=== PATIENT | male | born 1975 | race Two or more races ===

== ENCOUNTER 2018-11-21 14:58 | Emergency (ER) | payer MEDICAID, OTHER ==
[2018-11-21] MEDS ORDERED: SODIUM CHLORIDE 0.9% 1,000 ML IV ONE (15:26)
[2018-11-21] MEDS ORDERED: LORazepam 2MG/ML-1ML VIAL IV ONE (15:30)
[2018-11-21] MEDS ORDERED: ONDANSETRON HCL 4 MG/2 ML VIAL IV ONE (15:30)
[2018-11-21 15:55] LABS: Basophils # (auto) 0.1 uL; Basophils % (auto) 2.1 % (0.0-2.0); Eosinophils # (auto) 0.1 uL; Eosinophils % (auto) 1.6 % (0.0-7.0); Hematocrit 44.9 % (41.0-53.0); Hemoglobin 15.4 g/dL (13.5-17.5); Lymphocytes # (auto) 1.2 uL; Lymphocytes % (auto) 23.5 % (10.0-50.0); Mean Corpuscular Hemoglobin 32.6 pg (28.0-32.0); Mean Corpuscular Hgb Conc. 34.3 g/dL (32.0-36.0); Monocytes # (auto) 0.6 uL; Monocytes % (auto) 11.3 % (0.0-12.0); Neutrophils % (auto) 61.5 % (37.0-80.0); Nucleated Red Blood Cells % 0.1 %; Platelet Count (auto) 207 10^3/uL (140-450); Red Blood Cells 4.73 10^6/uL (4.5-5.90); Red Cell Distribution Width 14.6 % (11.8-14.3); White Blood Cell 4.9 10^3/uL (4.4-10.8)
[2018-11-21 16:11] LABS: Albumin 3.4 g/dL (3.4-5.0); Calcium 8.3 mg/dL (8.5-10.1); Potassium 3.8 mmol/L (3.5-5.1)
[2018-11-21 16:19] LABS: BUN/Creatinine Ratio 3.2
[2018-11-21 16:20] LABS: Bilirubin, Total 0.7 mg/dL (0.2-1.0); Total Protein 8.4 g/dL (6.4-8.2)
[2018-11-21 18:52] VITALS: BP 112/79
== END 2018-11-21 19:30 | disposition left against medical advice (07) ==
LOC: ER 14:58
DX: F10.129 Alcohol abuse with intoxication, unspecified (principal); Z53.29 Procedure and treatment not carried out because of patient's decision for other reasons
CPT/HCPCS: 36415; 80053; 80320; 85025; 93005; 94761; 96361; 96374; 96375; 99284; J2060; J2405; J7030

== ENCOUNTER 2018-11-25 12:03 | Inpatient (IN) | payer MEDICAID ==
[~2018-11-25] VITALS: Ht 167.6 cm; Wt 61.0 kg
--- NOTE | 2018-11-25 00:39 | NUR ---
Urine sample collected and sent to lab. Addendum: 11/26/18 at 0205 by NISHA FIELDS RN RN incorrect date. Sample sent to lab on 11/26/18 at 0039
[2018-11-25] MEDS ORDERED: SODIUM CHLORIDE 0.9% 1,000 ML IVB ONE (12:37)
[2018-11-25] MEDS ORDERED: ONDANSETRON HCL 4 MG/2 ML VIAL IV ONE (12:45)
[2018-11-25] MEDS ORDERED: SODIUM CHLORIDE 0.9% 1,000 ML IV ONE (12:45)
[2018-11-25 13:07] LABS: Basophils # (auto) 0.1 uL; Basophils % (auto) 1.1 % (0.0-2.0); Eosinophils # (auto) 0 uL; Eosinophils % (auto) 0.3 % (0.0-7.0); Hematocrit 41.2 % (41.0-53.0); Hemoglobin 14.3 g/dL (13.5-17.5); Lymphocytes # (auto) 1.1 uL; Lymphocytes % (auto) 16.6 % (10.0-50.0); Mean Corpuscular Hemoglobin 32.7 pg (28.0-32.0); Mean Corpuscular Hgb Conc. 34.6 g/dL (32.0-36.0); Mean Corpuscular Volume 94.4 fL (80.0-100.0); Monocytes # (auto) 0.8 uL; Monocytes % (auto) 12.1 % (0.0-12.0); Neutrophils # (auto) 4.7 uL; Neutrophils % (auto) 69.9 % (37.0-80.0); Platelet Count (auto) 159 10^3/uL (140-450); Red Blood Cells 4.37 10^6/uL (4.5-5.90); Red Cell Distribution Width 14.6 % (11.8-14.3); White Blood Cell 6.7 10^3/uL (4.4-10.8)
[2018-11-25 13:25] LABS: Albumin 3.2 g/dL (3.4-5.0); Calcium 7.7 mg/dL (8.5-10.1); Magnesium 2.7 mg/dL (1.6-2.6); Potassium 3.3 mmol/L (3.5-5.1)
[2018-11-25 13:28] LABS: INR 0.98 (0.9-1.15); Partial Thromboplastin Time 29.8 sec (23.64-32.05)
[2018-11-25 13:29] LABS: BUN/Creatinine Ratio 3.4; Bilirubin, Total 0.9 mg/dL (0.2-1.0); Total Protein 7.9 g/dL (6.4-8.2)
[2018-11-25] MEDS ORDERED: FOLIC ACID 1 MG, MULTIPLE VITAMIN 10 ML, MAGNESIUM SULF SDV 50% 8 MEQ, THIAMINE INJ 100... INJ SCH ×5 (14:00)
[2018-11-25 14:48] LABS: Amphetamine Screen, Urine NEGATIVE (NEGATIVE); Barbiturate Scree,Urine NEGATIVE (NEGATIVE); Benzodiazephine Screen, Urine NEGATIVE (NEGATIVE); Cannabinoid Screen, Urine NEGATIVE (NEGATIVE); Cocaine Screen, Urine NEGATIVE (NEGATIVE); Opiate Scree,Urine NEGATIVE (NEGATIVE); Phencyclidine Screen, Urine NEGATIVE (NEGATIVE)
[2018-11-25] MEDS ORDERED: cefTRIAXone 1GM/50ML D5W 50 ML IV ONE (16:15)
[2018-11-25] MEDS ORDERED: HYDROcodone-ACET 5/325MG TAB PO PRN (17:45)
[2018-11-25] MEDS ORDERED: NITROGLYCERIN 0.4 MG SL TAB SL PRN (17:45)
[2018-11-25] MEDS ORDERED: MORPHINE SULF INJ 2 MG/ML SYRINGE 1ML IV PRN ×2 (17:45)
[2018-11-25] MEDS ORDERED: ACETAMINOPHEN 500 MG TAB PO PRN (17:45)
[2018-11-25] MEDS ORDERED: POTASSIUM CHLORIDE 40 MEQ, LIDOCAINE 1% (LOCAL ANESTH.) 4 ML in SODIUM CHL 0.9% 100 ML IV ONE (18:00)
[2018-11-25] MEDS: chlordiazePOXIDE HCL 5 MG CAP PO SCH ×2 (18:08→21:57)
[2018-11-25] MEDS: LORazepam 2MG/ML-1ML VIAL IV PRN (18:16)
[2018-11-25 19:31] VITALS: BP 116/69
--- NOTE | 2018-11-25 19:31 | NUR ---
MS admit from ER VENKATESH OBRIEN admitted to tele/MS. Family is at bedside. Patient oriented to NISHA FIELDS, RN primary RN, unit, room, bed, and unit policies regarding patient care and visiting hours. Patient weighed by bedscale and encouraged to call if they need something. All questions and concerns addressed, patient verbalized understanding.
[2018-11-25 22:00] VITALS: BP 116/69
[2018-11-25] MEDS: ONDANSETRON HCL 4 MG/2 ML VIAL IV PRN (22:00)
--- NOTE | 2018-11-25 22:00 | NUR ---
NAUSEA Observed patient vomit. Reports nausea. Medicated for nausea as ordered.
--- NOTE | 2018-11-26 | NUR ---
ROUNDS Patient resting in bed with eyes closed. No s/s of distress noted. Will continue to monitor for changes PRN.
[2018-11-26 01:07] LABS: Urine WBC None Seen /hpf (0 - 3)
[2018-11-26 01:18] LABS: Urine Bacteria FEW /hpf (None Seen); Urine Blood Negative /uL (Negative)
--- NOTE | 2018-11-26 03:30 | NUR ---
ROUNDS Observed patient vomiting. Medicated for nausea per orders.
[2018-11-26] MEDS: ONDANSETRON HCL 4 MG/2 ML VIAL IV PRN (03:35)
[2018-11-26 05:00] VITALS: BP 120/71
[2018-11-26] MEDS: chlordiazePOXIDE HCL 5 MG CAP PO SCH ×2 (06:00→12:04)
[2018-11-26 08:00] VITALS: BP 128/81
--- NOTE | 2018-11-26 08:00 | NUR ---
Morning note Patient resting in bed with even and unlabored respirations, no distress noted. Through translation, instruction and education provided to the patient on POC, fall precautions, and to call for assistance. Patient verbalized understanding. Fall precautions in place with bed in lowest locked position and call light within reach. Will continue to monitor q1hr & PRN.
[2018-11-26] MEDS: FAMOTIDINE 20 MG TAB PO SCH (08:53)
--- NOTE | 2018-11-26 10:00 | NUR ---
RE: smoking Patient's daughter at bedside states "yeah, he already went down stairs to smoke." Smoking policy and smoking cessation education provided to patient. Patient verbalized understanding.
--- NOTE | 2018-11-26 10:01 | NUR ---
RE: reported alcohol intake Patient's states "During the week, he drinks 5-6 beers every day and on the weekends he drinks more than 20 beers in a day. He's been doing this for the past 5-6 years." Patient's states "he only drinks beer. No other alcohol."
--- NOTE | 2018-11-26 10:50 | NUR ---
Informed consent for smoking signed by patient and this RN. Consent placed in the chart. Respirations even and unlabored, no distress noted. Patient's spouse and patient's daughter at his side.
[2018-11-26 12:00] VITALS: BP 140/87
[2018-11-26] MEDS: FOLIC ACID 1 MG, MULTIPLE VITAMIN 10 ML, MAGNESIUM SULF SDV 50% 8 MEQ, THIAMINE INJ 100... INJ SCH ×5 (12:01)
[2018-11-26] MEDS: LORazepam 2MG/ML-1ML VIAL IV PRN (12:15)
--- NOTE | 2018-11-26 12:15 | NUR ---
Anti-anxiety medication administered per MD's order Patient has tremors noted in both hands. Patient states "I feel a little anxious. I felt really anxious earlier so that's why I walked around." Medication administered per MD's order. Patient resting in bed with even and unlabored respirations, no distress noted.
--- NOTE | 2018-11-26 14:17 | NUR ---
Patient off unit to smoke respirations even and unlabored, no distress noted. Patient's spouse at patient's side.
[2018-11-26] MEDS ORDERED: NICOTINE 14 MG/24HR TOPICAL PATCH TD ONE (14:45)
[2018-11-26] MEDS ORDERED: POTASSIUM CHL 10 Meq TABLET PO ONE (14:45)
--- NOTE | 2018-11-26 14:49 | NUR ---
Estimated needs based on CBW 62.8 kg-slightly increased for poor PO 1599-5850 kcal (25-27 kcal/kg) 63-75 g protein (1.0-1.2 g/kg) Addendum: 11/26/18 at [address] Amended: Links added.
--- NOTE | 2018-11-26 15:05 | NUR ---
Nicotine patch administered per MD's order Nicotine patch placed on the upper right arm after allergies confirmed by patient. Smoking cessation education provided through translation by staff member. Patient verbalized understanding. Patient instructed not to smoke with the patch on his body. Patient verbalized understanding. Patient's spouse at bedside.
[2018-11-26 16:44] VITALS: BP 127/73
--- NOTE | 2018-11-26 16:56 | NUR ---
Patient requesting to ambulate outside of hospital Instructed patient to not leave unit per Dr. Garcia's order. Patient verbalized understanding. Patient ambulating in the hallway with a steady gait. Respirations even and unlabored, no distress noted.
[2018-11-26] MEDS: chlordiazePOXIDE HCL 25 MG CAP PO SCH ×2 (17:21→21:34)
--- NOTE | 2018-11-26 18:43 | NUR ---
Closing note patient resting in bed with even and unlabored respirations , no distress noted. Call light within reach. Visitors at bedside.
--- NOTE | 2018-11-26 19:05 | NUR ---
OPENING NOTE- NOC SHIFT PATIENT IS ALERT AND ORIENTED X4. FAMILY IS AT BEDSIDE; [employer] NOTED. PATIENT IS [place] SPEAKING ONLY; ANSWERS IN COMPLETE SENTENCES AND MAKES APPROPRIATE EYE CONTACT. PATIENT DOES NOT PRESENT WITH TREMORS AT THIS TIME. PATIENT IS RESTING IN BED, BED IS LOCKED IN LOWEST POSITION, BED RAILS UP X2, HEAD OF BED IS UP >30 DEGREES FOR SAFETY PRECAUTIONS. BEDSIDE TABLE WITHIN REACH, CALL LIGHT WITHIN REACH, DISCUSSED POC WITH PATIENT AND INSTRUCTED PATIENT TO CALL PRN; PATIENT VERBALIZED UNDERSTANDING. WILL CONTINUE TO MONITOR Q1H AND PRN. NO S/SX OF DISTRESS, SOB OR PAIN.
--- NOTE | 2018-11-26 19:19 | NUR ---
Care endorsed to THERESA Penn.
--- NOTE | 2018-11-26 19:40 | NUR ---
PATIENT DENIES NAUSEA AND VOMITING. PATIENT WAS HEARD GAGGING. HE STATES THAT HE FEELS PHLEGM BUT TO SPIT OUT. LUNG SOUNDS ARE CLEAR.
[2018-11-26 22:00] VITALS: BP_SYST 102; BP_SYST 144; BP_DIAS 66; BP_DIAS 78
[2018-11-27 05:00] VITALS: BP 137/88
--- NOTE | 2018-11-27 05:00 | NUR ---
PATIENT UP TO RESTROOM. STEADY GAIT NOTED.
[2018-11-27] MEDS: chlordiazePOXIDE HCL 25 MG CAP PO SCH ×2 (05:33→11:46)
[2018-11-27 06:12] LABS: Basophils # (auto) 0.1 uL; Basophils % (auto) 1.5 % (0.0-2.0); Eosinophils # (auto) 0.2 uL; Eosinophils % (auto) 4.3 % (0.0-7.0); Hemoglobin 15.2 g/dL (13.5-17.5); Lymphocytes # (auto) 1.2 uL; Lymphocytes % (auto) 24.4 % (10.0-50.0); Mean Corpuscular Hemoglobin 32.7 pg (28.0-32.0); Mean Corpuscular Hgb Conc. 33.8 g/dL (32.0-36.0); Mean Corpuscular Volume 96.6 fL (80.0-100.0); Monocytes # (auto) 0.6 uL; Monocytes % (auto) 11.5 % (0.0-12.0); Neutrophils # (auto) 2.9 uL; Neutrophils % (auto) 58.3 % (37.0-80.0); Nucleated Red Blood Cells % 0.1 %; Platelet Count (auto) 161 10^3/uL (140-450); Red Blood Cells 4.65 10^6/uL (4.5-5.90)
[2018-11-27 06:37] LABS: Albumin 3.4 g/dL (3.4-5.0); BUN/Creatinine Ratio 9.2; Calcium 8.9 mg/dL (8.5-10.1); Potassium 3.7 mmol/L (3.5-5.1)
[2018-11-27 06:39] LABS: Bilirubin, Total 1.8 mg/dL (0.2-1.0); Total Protein 7.8 g/dL (6.4-8.2)
--- NOTE | 2018-11-27 06:52 | NUR ---
CLOSING NOTE- NOC SHIFT NO S/SX OF DISTRESS, SOB OR PAIN. PATIENT STATES THAT HE WOULD LIKE TO GO HOME EARLY TODAY BECAUSE HE HAS TO GO TO WORK. NO ACUTE CHANGES DURING CLINICAL LAB TECHNOLOGIST.
[2018-11-27] MEDS: FAMOTIDINE 20 MG TAB PO SCH (08:07)
[2018-11-27 09:00] VITALS: BP 127/90
[2018-11-27] MEDS ORDERED: NICOTINE 14 MG/24HR TOPICAL PATCH TD SCH (10:00)
--- NOTE | 2018-11-27 11:15 | NUR ---
was at bedside - Dr. Finch
--- NOTE | 2018-11-27 11:19 | NUR ---
Prescription picked up by [employer] technician to process
[2018-11-27 11:33] VITALS: BP 115/82
[2018-11-27] MEDS: FOLIC ACID 1 MG, MULTIPLE VITAMIN 10 ML, MAGNESIUM SULF SDV 50% 8 MEQ, THIAMINE INJ 100... INJ SCH ×5 (11:46)
[2018-11-27 12:00] VITALS: BP 115/82
--- NOTE | 2018-11-27 12:22 | NUR ---
Discharge Discharge education and paperwork provided to the patient per MD's order. Education provided to patient's daughter at bedside who translated to the patient. Patient verbalized understanding. IV removed with clean technique, catheter intact. Dressing applied. Patient tolerated well, no trauma to site. Patient instructed to collect personal belongings. Patient verbalized understanding. Patient refused wheelchair. Respirations even and unlabored. Patient's prescription delivered to bedside from [facility]. Patient ambulated with a steady gait to private vehicle with all personal belongings with his daughter at his side, no distress noted.
== END 2018-11-27 12:25 | disposition home or self-care (01) | DRG 241 ==
LOC: ER 12:03 → OVERFLOW 12:04 → CENTRAL 19:30
PROVIDERS: ADMIT Nurse Practitioner Acute Care; ATTEND Internal Medicine
DX: K29.20 Alcoholic gastritis without bleeding (principal); F10.231 Alcohol dependence with withdrawal delirium; K70.0 Alcoholic fatty liver; E87.6 Hypokalemia; E86.0 Dehydration; F17.210 Nicotine dependence, cigarettes, uncomplicated; Z71.6 Tobacco abuse counseling; Z71.41 Alcohol abuse counseling and surveillance of alcoholic
CPT/HCPCS: 36415; 71045; 76705; 80053; 80307; 80320; 81001; 83605; 83735; 85025; 85610; 85730; 87040; 94761; 96361; 96365; 96366; 96367; 96375; G0378; J0696; J2001; J2405